=== PATIENT | male | born 1990 | race Caucasian/White ===

== ENCOUNTER 2020-12-21 04:20 | Emergency (ER) | payer BC, SELFPAY ==
[~2020-12-21] VITALS: Ht 180.3 cm; Wt 129.3 kg
[2020-12-21 04:25] VITALS: BP_SYST 132
--- NOTE | 2020-12-21 04:25 | NUR ---
Patient to ER bed 7 to gown for evaluation. Side rails up.
--- NOTE | 2020-12-21 04:31 | NUR ---
Assumed total care of patient. Patient awake, alert & oriented x4 from home c/o mid center back pain that started two days ago suddenly. Patient denies injury or trauma. Patient reports reaching arm over chest & pressing chin down to chest aggravates pain. Patient described pain as sharp pain that takes his breath away. Patient rates pain 9/10. VSS, breathing even and unlabored, no signs of acute distress noted. Will continue to monitor.
--- NOTE | 2020-12-21 05:26 | NUR ---
ER Dr. Shepherd at bedside examining patient.
[2020-12-21] MEDS ORDERED: IPRATROPIUM/ALBUTEROL SULFATE 3 ML AMPUL.NEB (DUONEB) INH ONE (05:45)
--- NOTE | 2020-12-21 05:49 | NUR ---
Lab at bedside drawing blood.
--- NOTE | 2020-12-21 05:50 | NUR ---
Patient refused Covid swab. notified.
--- NOTE | 2020-12-21 06:01 | NUR ---
Radiology at bedside for chest xray.
--- NOTE | 2020-12-21 06:08 | NUR ---
Respiratory therapist at bedside for breathing treatment.
--- NOTE | 2020-12-21 06:10 | NUR ---
Patient states pain is still a 9/10. Patient states he is not wanting any pain medication at the moment.
--- NOTE | 2020-12-21 06:22 | NUR ---
Dr. Travis at bedside examining patient.
[2020-12-21 06:24] LABS: BASOPHILS % (AUTO) 0.1 % (0.0-2.0); EOSINOPHILS # (AUTO) 0.2 K/uL (0.0-0.4); HEMATOCRIT 44.4 % (36-54); LYMPHOCYTES # (AUTO) 3.3 K/uL (1.0-5.5); LYMPHOCYTES % (AUTO) 32.9 % (20.5-51.5); MEAN CORPUSCULAR HEMOGLOBIN 29 pg (27-31); MEAN CORPUSCULAR HGB CONC 34 % (32-36); MEAN CORPUSCULAR VOLUME 85 fL (79.0-98.0); MONOCYTES # (AUTO) 0.8 K/uL (0.0-1.0); MONOCYTES % (AUTO) 7.9 % (1.7-9.3); NEUTROPHILS # (AUTO) 5.7 K/uL (1.8-7.7); NEUTROPHILS % (AUTO) 57.1 % (40.0-70.0); PLATELET COUNT (AUTO) 256 K/uL (130-430); RED CELL DISTRIBUTION WIDTH 14.1 % (9.0-15.0); WHITE BLOOD COUNT (AUTO) 10.1 K/uL (4.8-10.8)
[2020-12-21 06:25] LABS: ANION GAP 7 (5-15); CALCIUM 8.7 mg/dL (8.4-11.0); CHLORIDE 105 mmol/L (98-107); CREATININE 0.84 mg/dL (0.55-1.30); GLUCOSE 105 mg/dL (70-99); POTASSIUM 4.4 mmol/L (3.5-5.1); SODIUM SERUM 144 mmol/L (136-145); UREA NITROGEN, BLOOD 11 mg/dL (8-21)
[2020-12-21] MEDS ORDERED: TRAM50TA PO (06:30)
[2020-12-21] MEDS ORDERED: NAPR-688 PO (06:30)
[2020-12-21 06:31] LABS: GFR AFRICAN AMERICAN 138 mL/min (>90)
[2020-12-21 06:34] LABS: ALANINE AMINOTRANSFERASE 42 U/L (12-78); ALBUMIN 3.8 g/dL (3.4-4.8); ASPARTATE AMINOTRANSFERASE 18 U/L (10-37); TOTAL BILIRUBIN 0.4 mg/dL (0.0-1.0)
[2020-12-21 06:37] VITALS: BP_SYST 144
--- NOTE | 2020-12-21 06:37 | NUR ---
Patient given written and verbal discharge instructions and verbalizes understanding. ER MD discussed with patient the results and treatment provided. Patient in stable condition. ID arm band removed. no iv Rx of naproxen and tramadol given. Patient educated on pain management and to follow up with PMD. Pain Scale 9/10. Opportunity for questions provided and answered. Medication side effect fact sheet provided.
== END 2020-12-21 06:37 | disposition home or self-care (01) ==
LOC: SED 04:20
DX: S29.012A Strain of muscle and tendon of back wall of thorax, initial encounter (principal); J45.909 Unspecified asthma, uncomplicated; Z79.899 Other long term (current) drug therapy; X50.9XXA Other and unspecified overexertion or strenuous movements or postures, initial encounter; Y93.89 Activity, other specified; Y92.89 Other specified places as the place of occurrence of the external cause; Y99.8 Other external cause status
CPT/HCPCS: 36415; 71045; 80053; 83880; 84484; 85025; 85379; 93005; 94640; 99285